=== PATIENT | female | born 1975 | race Caucasian/White ===

== ENCOUNTER 2022-02-10 10:31 | Emergency (ER) | payer OTHER ==
[~2022-02-10] VITALS: Ht 160 cm; Wt 68.0 kg
[~2022-02-10 10:31] MED LIST: CELEBREX100 MG PO; KETO10TA2 PO; SKELAXIN800 MG PO; TAMS0.4C PO
== END 2022-02-10 14:14 | disposition home or self-care (01) ==
LOC: ER 10:31
DX: G44.019 Episodic cluster headache, not intractable (principal); G43.909 Migraine, unspecified, not intractable, without status migrainosus; Z88.2 Allergy status to sulfonamides